=== PATIENT | female | born 2005 | race Caucasian/White ===

== ENCOUNTER 2023-09-30 16:37 | Emergency (ER) | payer MEDICAID ==
[~2023-09-30] VITALS: Ht 157.5 cm; Wt 79.4 kg
[2023-09-30 17:04] LABS: BASOPHILS ABSOLUTE AUTO 0.03 K/mm3 (0.00-0.23); BASOPHILS PERCENT AUTO 1 % (0-2); EOSINOPHILS ABSOLUTE AUTO 0.06 K/mm3 (0.00-0.68); EOSINOPHILS PERCENT AUTO 1 % (0-6); Hematocrit 39.4 % (33.0-51.0); Hemoglobin 13.1 g/dL (11.5-16.0); IMMATURE GRAN ABSOLUTE AUTO 0.01 K/mm3 (0.00-0.10); IMMATURE GRAN PERCENT AUTO 0 % (0-1); LYMPHOCYTES ABSOLUTE AUTO 2.12 K/mm3 (0.84-5.20); LYMPHOCYTES PERCENT AUTO 32 % (21-46); MONOCYTES ABSOLUTE AUTO 0.46 K/mm3 (0.16-1.47); MONOCYTES PERCENT AUTO 7 % (4-13); Mean Corpuscular HGB 29.6 pg (26.0-34.0); Mean Corpuscular HGB Conc 33.2 g/dL (31.5-36.5); Mean Corpuscular Volume 89 fL (80-100); Mean Platelet Volume 9.8 fL (9.1-12.4); NEUTROPHILS ABSOLUTE AUTO 3.91 K/mm3 (1.96-9.15); NEUTROPHILS PERCENT AUTO 59 % (41-73); Platelet Count 325 K/mm3 (150-400); RDW Coefficient Variation 13.2 % (11.7-14.2); Red Blood Cell Count 4.43 M/mm3 (3.80-5.20); White Blood Cell Count 6.59 K/mm3 (4.00-11.30)
[2023-09-30 17:27] LABS: Albumin, Blood 3.8 g/dL (3.4-5.0); Bilirubin, Total 0.4 mg/dL (0.1-1.0); Bun/Creatinine Ratio 12.7 (12.0-20.0); Calcium, Blood 8.9 mg/dL (8.5-10.1); Creatinine, Blood 0.79 mg/dL (0.40-1.00); Globulin, Blood 3.7 g/dL (2.2-4.0); Total Protein, Blood 7.5 g/dL (6.4-8.2)
[2023-09-30 17:46] LABS: Source, Urine Clean Catch
[2023-09-30 18:13] LABS: Appearance, Urine Clear (Clear); Bilirubin, Urine Neg (Neg); Blood, Urine 4+ (Neg); Color, Urine Yellow (P-Yellow); Glucose Qualitative, Urine Neg (Neg); Ketones, Urine Neg (Neg); Leukocyte Esterase, Urine 1+ (Neg); Nitrite, Urine Neg (Neg); Protein, Urine Neg (Neg); Specific Gravity, Urine 1.015 (1.003-1.022); Urobilinogen, Urine NORM (Normal)
[2023-09-30] MEDS ORDERED: NS 1,000 ML IV SCH (18:25)
[2023-09-30 18:27] LABS: Bacteria Many /hpf; Squamous Epithelial Cells Few /hpf (Few)
[2023-09-30] MEDS ORDERED: SULTRIDS PO (19:30)
[2023-09-30] MEDS ORDERED: Trimethoprim/Sulfamethoxazole DS Tab PO ONE (19:30)
== END 2023-09-30 20:33 | disposition home or self-care (01) ==
LOC: ER 16:37
PROVIDERS: Physician Assistant
DX: N12 Tubulo-interstitial nephritis, not specified as acute or chronic (principal); E86.0 Dehydration
CPT/HCPCS: 74177; 80053; 81001; 84703; 85025; 87086; 99284-25; A9270; J7030; Q9967

== ENCOUNTER 2023-11-02 10:11 | Emergency (ER) | payer OTHER ==
[~2023-11-02] VITALS: Ht 157.5 cm; Wt 77.1 kg
[~2023-11-02 10:11] MED LIST: SULTRIDS PO
[2023-11-02] MEDS ORDERED: Ondansetron 4 MG SoluTab SL ONE (10:35)
[2023-11-02] MEDS ORDERED: Acetaminophen 500 MG Tab PO ONE (12:25)
[2023-11-02 12:27] LABS: Influenza A, PCR NEGATIVE (NEGATIVE); Influenza B, PCR NEGATIVE (NEGATIVE); Resp Syncytial Virus, PCR NEGATIVE (NEGATIVE)
[2023-11-02 12:34] LABS: SARS-Cov-2 (COVID-19) PCR, MMC POSITIVE (NEGATIVE)
[2023-11-02] MEDS ORDERED: ONDA4ODT MM (12:38)
== END 2023-11-02 13:00 | disposition home or self-care (01) ==
LOC: ER 10:11
PROVIDERS: Physician Assistant
DX: U07.1 COVID-19 (principal); R11.0 Nausea; Z79.899 Other long term (current) drug therapy
CPT/HCPCS: 0241U; 99284; A9270